=== PATIENT | female | born 1970 ===

== ENCOUNTER 2023-07-04 06:08 | Day surgery (SDC) | payer OTHER, SELFPAY ==
[2023-06-12 09:43] VITALS: BMI 26.6
--- NOTE | 2023-06-20 11:17 | CM ---
Patient is scheduled for surgery with Dr. Webb on 07/04/23. Spoke with patient prior to surgery via telephone. Introduced role of case management. Patient reports that she lives with her and daughter in a two story home. There is one step
to enter and flight of steps to the second floor. She functions independently and does not use any DME. She has had VN services through [facility]. She has a prescription plan and uses [facility] in [place].
PCP is Patrice Camacho.
Patient states that she will have support from her when she goes home. he will be home with her for a week and will then leadite worker for a week. She has no discharge planning concerns at this time. She states that if VN services are
indicated, she would be agreeable. Reviewed options and she selects [facility] or VN.
[2023-07-04] VITALS (12 sets, daily range): BP systolic 117–125; BP diastolic 64–78; BMI 26.5; BMI 26.6
[2023-07-04] MEDS: Pyridium 200 MG PO (07:04)
[2023-07-04] MEDS: HEPARIN 5000 UNITS SC (07:05)
[2023-07-04] MEDS: NORMOSOL-R 1000 IV (07:17)
[2023-07-04 07:19] LABS: HCG, Urine Qualitative Screen Negative
[2023-07-04] MEDS: MOTRIN 600 MG PO (16:06)
== END 2023-07-04 16:25 | disposition home or self-care (01) ==
LOC: SDS 06:08
PROVIDERS: ATTENDING PHYSICIAN Obstetrics & Gynecology
DX: N81.11 Cystocele, midline (principal); N84.0 Polyp of corpus uteri; D25.9 Leiomyoma of uterus, unspecified; N72 Inflammatory disease of cervix uteri
CPT/HCPCS: 57425; 58573; 88305; 88307; 81025; 86900; 86901; 88341; 88342

== ENCOUNTER 2024-08-01 06:05 | Outpatient (RCR) | payer OTHER, SELFPAY | END 2024-08-01 23:59 | disposition home or self-care (01) | LOC: RPT 06:05 | PROVIDERS: ATTENDING PHYSICIAN Physician Assistant; FAMILY PHYSICIAN Family Medicine | DX: N94.19 Other specified dyspareunia (principal); N39.3 Stress incontinence (female) (male); R10.2 Pelvic and perineal pain; Z73.6 Limitation of activities due to disability; Z85.3 Personal history of malignant neoplasm of breast | CPT/HCPCS: 97163; 97530 ==

== ENCOUNTER 2024-08-28 15:18 | Outpatient (RCR) | payer OTHER, SELFPAY | END 2024-08-28 23:59 | disposition home or self-care (01) | LOC: RPT 15:18 | PROVIDERS: ATTENDING PHYSICIAN Physician Assistant; FAMILY PHYSICIAN Family Medicine | DX: N94.19 Other specified dyspareunia (principal); N39.3 Stress incontinence (female) (male); R10.2 Pelvic and perineal pain; Z73.6 Limitation of activities due to disability; Z85.3 Personal history of malignant neoplasm of breast | CPT/HCPCS: 97110; 97112; 97140; 97530 ==

== ENCOUNTER 2024-10-09 14:09 | Outpatient (RCR) | payer OTHER, SELFPAY | END 2024-10-09 23:59 | disposition home or self-care (01) | LOC: RPT 14:09 | PROVIDERS: ATTENDING PHYSICIAN Physician Assistant; FAMILY PHYSICIAN Family Medicine | DX: N94.19 Other specified dyspareunia (principal); N39.3 Stress incontinence (female) (male); R10.2 Pelvic and perineal pain; Z73.6 Limitation of activities due to disability; Z85.3 Personal history of malignant neoplasm of breast | CPT/HCPCS: 97110; 97140; 97530 ==

== ENCOUNTER 2024-12-11 15:14 | Outpatient (RCR) | payer OTHER, SELFPAY | END 2024-12-11 23:59 | disposition home or self-care (01) | LOC: RPT 15:14 | PROVIDERS: ATTENDING PHYSICIAN Physician Assistant; FAMILY PHYSICIAN Family Medicine | DX: N94.19 Other specified dyspareunia (principal); N39.3 Stress incontinence (female) (male); R10.2 Pelvic and perineal pain; Z73.6 Limitation of activities due to disability; Z85.3 Personal history of malignant neoplasm of breast; R10.20 Pelvic and perineal pain unspecified side | CPT/HCPCS: 97140; 97530 ==